=== PATIENT | male | born 1980 | race African-American/Black ===

== ENCOUNTER 2018-10-14 18:18 | Emergency (ER) | payer OTHER ==
[~2018-10-14] VITALS: Ht 177.8 cm; Wt 110.0 kg
[2018-10-14] MEDS ORDERED: LIDOCAINE HCL/PF 1% 10 MG/ML 5ML VIAL IJ ONE (20:30)
[2018-10-14] MEDS ORDERED: HYDROCODONE/ACETAMINOPHEN 5/325MG TABLET PO ONE (20:30)
[2018-10-14 23:20] VITALS: BP 106/68
== END 2018-10-14 23:25 | disposition home or self-care (01) ==
LOC: ER 18:38
DX: S81.012A Laceration without foreign body, left knee, initial encounter (principal); V43.52XA Car driver injured in collision with other type car in traffic accident, initial encounter; Y93.89 Activity, other specified; Y92.488 Other paved roadways as the place of occurrence of the external cause
CPT/HCPCS: 12002; 73562; 73590; 99283; J3490; L1830; Z7610